=== PATIENT | male | born 1955 | race Caucasian/White ===

== ENCOUNTER 2019-02-20 05:48 | Day surgery (SDC) | payer BC ==
[~2019-02-20] VITALS: Ht 190.5 cm; Wt 138.0 kg
[~2019-02-20 05:48] MED LIST: ABAT250V; ASPI81CH PO; ATOR80 PO; CELE200 PO; DICLOFENAC SOD100 G1 TOP; FENO160 PO; FINA5 PO; GABA300 PO; METF500 PO; OMEPRAZOLE20 MG PO; OXYB5 PO; Prinivil10 MG PO; TAMS.4ER PO
--- NOTE | 2019-02-20 06:32 | NUR ---
INTO [facility]. ADMISSION STARTED.Ambulatory in Day Surgery History, Chart, Medications and Allergies reviewed before start of procedure.Lungs clear T/O to Auscultation. Patient confirms NPO status and agrees with scheduled surgery. Patient States Post-Procedure ride home has been arranged.
--- NOTE | 2019-02-20 10:44 | NUR ---
PT IS AWAKE AND HAS BEEN SINCE ARRIVAL. PT HAS STATED HE NEEDS TO HAVE A BM. HE DID NOT WANT TO USE THE BED DAVIS WHEN RN OFFERED. HE STATED HE WANTS TO TRY AND SIT UP WHEN NEXT DOOR AND TRY TO USE THE RESTROOM.
--- NOTE | 2019-02-20 10:45 | NUR ---
PT REALLY WANTS TO USE THE RESTROOM TO HAVE A BM. PT HAS BEEN STABLE, VSS. PT HAS NOT HAD ANY OTHER C/O. PT IS STABLE.
--- NOTE | 2019-02-20 11:07 | NUR ---
REPORT WAS GIVEN TO STEP DOWN SX ([facility]). RN ASSISTED PT TO THE RESTROOM SO PT COULD TRY AND HAVE A BM. PT DENIED ANY LIGHTHEADNESS/DIZZINESS. RN ASSISTED PT BACK TO BED AND [facility] RN ASSUMED CARE OF PT. PT COULD NOT HAVE BM PASSED GAS.
--- NOTE | 2019-02-20 11:56 | NUR ---
Patient up to Ambulate independently. Gait steady. Discharge instructions reviewed with patient. Patient verbalizes understanding. Copy given to patient to take home. Patient States Post-Procedure ride home has been arranged. Discharged via wheelchair to private car for ride home.
== END 2019-02-20 23:40 | disposition home or self-care (01) ==
LOC: ORSCMMR 05:48 → EDBD 07:30 → ORD 07:30 → ORSCMMR 07:30
PROVIDERS: Surgery
PROC: 0YUA4JZ Supplement Bilateral Inguinal Region with Synthetic Substitute, Percutaneous Endoscopic Approach (ICD-10-PCS; principal; 2019-02-20 07:30)
PROC: 8E0W4CZ Robotic Assisted Procedure of Trunk Region, Percutaneous Endoscopic Approach (ICD-10-PCS; principal; 2019-02-20 07:30)
DX: K40.20 Bilateral inguinal hernia, without obstruction or gangrene, not specified as recurrent (principal); I10 Essential (primary) hypertension; F17.210 Nicotine dependence, cigarettes, uncomplicated; E78.00 Pure hypercholesterolemia, unspecified; E66.01 Morbid (severe) obesity due to excess calories; Z68.38 Body mass index [BMI] 38.0-38.9, adult; Z79.899 Other long term (current) drug therapy; Z79.82 Long term (current) use of aspirin
CPT/HCPCS: 49650; S2900; 82947; A9270-GY; C1781; J0690; J1100; J1885; J2250; J2405; J2704; J3010; J7120